=== PATIENT | female | born 1970 | race African-American/Black ===

== ENCOUNTER 2017-09-05 11:33 | Emergency (ER) | payer OTHER ==
[~2017-09-05] VITALS: Ht 152.4 cm; Wt 86.6 kg
[~2017-09-05 11:33] MED LIST: OMEP20CA PO
[2017-09-05 12:19] LABS: PLATELET COUNT 390 K/uL (152-353)
[2017-09-05 12:29] LABS: POTASSIUM 3.7 mmol/L (3.6-5.2)
[2017-09-05 13:49] VITALS: BP 159/105; TEMP 97.2
== END 2017-09-05 13:52 | disposition left against medical advice (07) ==
LOC: ED 11:33
PROVIDERS: Family Medicine
DX: R07.89 Other chest pain (principal); D50.8 Other iron deficiency anemias; F41.8 Other specified anxiety disorders
CPT/HCPCS: 36415; 80053; 82550; 84484; 85027; 85610; 85730; 93005; 99283